=== PATIENT | male | born 1990 | race Caucasian/White ===

== ENCOUNTER 2020-04-19 20:26 | Emergency (ER) | payer MEDICAID ==
[~2020-04-19] VITALS: Ht 182.9 cm; Wt 80.0 kg
[2020-04-19 20:30] VITALS: BP 139/80
[2020-04-19] MEDS ORDERED: PROPARACAINE OPHTH 0.5%, 15ML ONE (20:50)
[2020-04-19] MEDS ORDERED: FLUORESCEIN OPHTHALMIC 1 MG STRIP LEFTEYE ONE (21:00)
[2020-04-19] MEDS ORDERED: PROPARACAINE OPHTH 0.5%, 15ML LEFTEYE ONE (21:00)
== END 2020-04-19 21:45 | disposition home or self-care (01) ==
LOC: ED 21:20
DX: T15.01XA Foreign body in cornea, right eye, initial encounter (principal); X58.XXXA Exposure to other specified factors, initial encounter; Y93.89 Activity, other specified; Y92.89 Other specified places as the place of occurrence of the external cause; Y99.8 Other external cause status
CPT/HCPCS: 65222; 99284